=== PATIENT | female | born 1995 | race Caucasian/White ===

== ENCOUNTER 2017-07-09 01:19 | Emergency (ER) | payer OTHER | END 2017-07-09 02:07 | disposition left against medical advice (07) | LOC: ERS 01:19 | DX: Z53.21 Procedure and treatment not carried out due to patient leaving prior to being seen by health care provider (principal) ==

== ENCOUNTER 2017-11-18 01:12 | Emergency (ER) | payer OTHER, SELFPAY ==
[2017-11-18] MEDS ORDERED: Fluorescein Opthalmic Strip ONE (01:25)
[2017-11-18] MEDS ORDERED: Proparacaine 0.5% Opth 15 ML BOT ONE (01:25)
[2017-11-18] MEDS ORDERED: Gentamicin Ophth Ointment 0.3% 3.5 gm Tube ONE (01:48)
[2017-11-18] MEDS ORDERED: Amoxicillin/Potassium Clav 875 MG TAB ONE (01:48)
[2017-11-18] MEDS ORDERED: Ibuprofen 600 MG TAB ONE (01:48)
== END 2017-11-18 03:08 | disposition home or self-care (01) ==
LOC: SCSER 01:12
DX: H00.14 Chalazion left upper eyelid (principal); F41.9 Anxiety disorder, unspecified; F32.9 Major depressive disorder, single episode, unspecified
CPT/HCPCS: 99283

== ENCOUNTER 2017-12-16 20:26 | Emergency (ER) | payer SELFPAY ==
[2017-12-16 21:03] LABS: #Basophils 0.1 thou/uL (0.0-0.2); #Eosinphils 0.2 thou/uL (0.0-0.7); #Monocytes 0.8 thou/uL (0.11-0.59); #Neutrophils 3.8 thou/uL (1.40-6.50); %Basophils 1.1 % (0.0-1.0); %Eosinophils 2.7 % (0.0-10.0); %Lymphocytes 38.3 % (28.0-48.0); Hemoglobin 14.1 g/dL (12.0-16.0); Mean Corpuscular HGB CONC 33.5 g/dL (32.0-36.0); Mean Corpuscular Hemoglobin 29.6 pg (25.0-35.0); Mean Corpuscular Volume 88.3 fL (78.0-98.0); Mean Platelet Volume 6.6 fL (7.4-10.4); Platelet Count 337 thou/uL (130-400); Red Blood Cell (RBC) Count 4.77 mill/uL (4.00-5.20); White Blood Cell (WBC) Count 7.9 thou/uL (4.8-10.8)
[2017-12-16 21:08] LABS: BHCG - Serum Negative (NEGATIVE); PTT 26.4 SEC (22.9-36.1); Pregs Control Background? CLEAR/WHITE (CLR/WHITE); Pregs Control Bar Appear? YES (CONTROL BAR); Prothrombin Time 12.9 SEC (12.0-14.7)
[2017-12-16 21:17] LABS: ALT (SGPT) 17 U/L (8-55); AST (SGOT) 20 U/L (5-34); Albumin 4.2 g/dL (3.5-5.0); Alkaline Phosphatase 68 U/L (40-150); Anion Gap 13 mmol/L (10-20); BUN (Urea Nitrogen) 11 mg/dL (7.0-18.7); Bilirubin, Total 0.3 mg/dL (0.2-1.2); Calc. Creatinine Clearance 0 mL/min (70-130); Calcium 9.6 mg/dL (7.8-10.44); Carbon Dioxide 25 mmol/L (22-29); Estimated GFR-MDRD Greater than 90; Globulin 3.6 g/dL (2.4-3.5); Glucose 73 mg/dL (70-105); Potassium 3.9 mmol/L (3.5-5.1); Protein, Total 7.8 g/dL (6.0-8.3)
[2017-12-16 21:25] LABS: Chloride 104 mmol/L (98-107); Sodium 138 mmol/L (136-145)
[2017-12-16] MEDS ORDERED: cefTRIAXone\\ROCEPHIN 250 MG VIAL ONE (21:29)
[2017-12-16] MEDS ORDERED: Lidocaine 1% PF 5 ML VIAL ONE (21:29)
[2017-12-16] MEDS ORDERED: Azithromycin 250 MG TAB ONE (21:29)
[2017-12-16 21:52] LABS: Bilirubin Negative (Negative); Blood, Urine Negative (Negative); Clarity Clear (Clear); Glucose, Urine (Dipstick) Negative (Negative); Leukocyte Trace (Negative); Nitrite Negative (Negative); Protein, Urine (Dipstick) Negative (Neg-Trace); Urobilinogen 0.2 mg/dL (0.2-1.0)
[2017-12-16 21:55] LABS: Bacteria/HPF None Seen HPF (None Seen); Hyaline Casts/LPF 0-3 HYALINE CAST LPF (0-3 Hyaline); RBC/HPF 0-3 HPF (0-3); Squamous Epithelial 0-3 HPF (0-3); WBC/HPF 0-3 HPF (0-3)
[2017-12-17 19:42] LABS: Chlamydia by PCR Not Detected (NotDetected); GC by PCR Not Detected (NotDetected)
== END 2017-12-16 22:13 | disposition home or self-care (01) ==
LOC: SCSER 20:26
DX: T19.2XXA Foreign body in vulva and vagina, initial encounter (principal); F41.9 Anxiety disorder, unspecified; F32.9 Major depressive disorder, single episode, unspecified; F20.9 Schizophrenia, unspecified
CPT/HCPCS: 80053; 81003; 81015; 84703; 85025; 85610; 85730; 86850; 86900; 86901; 87480; 87491; 87510; 87591; 87660; 93005; 96360; 96372; J0696; J2001

== ENCOUNTER 2018-05-06 04:43 | Emergency (ER) | payer SELFPAY ==
[2018-05-06] MEDS ORDERED: Azithromycin 250 MG TAB ONE (06:07)
[2018-05-06] MEDS ORDERED: cefTRIAXone\\ROCEPHIN 250 MG VIAL ONE (06:07)
[2018-05-06] MEDS ORDERED: Lidocaine 1% PF 5 ML VIAL ONE (06:08)
[2018-05-08 21:29] LABS: Chlamydia by PCR Not Detected (NotDetected); GC by PCR Not Detected (NotDetected)
== END 2018-05-06 06:30 | disposition home or self-care (01) ==
LOC: ERS 04:43
DX: A64 Unspecified sexually transmitted disease (principal)
CPT/HCPCS: 87491; 87591; 96372; J0696; J2001